=== PATIENT | male | born 2005 | race Caucasian/White ===

== ENCOUNTER 2023-09-18 20:03 | Emergency (ER) | payer OTHER ==
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
[2023-09-18 20:36] VITALS: BP 138/62; O2SAT 100
== END 2023-09-18 20:47 | disposition home or self-care (01) ==
LOC: ED 20:03
DX: M79.661 Pain in right lower leg (principal); V43.62XA Car passenger injured in collision with other type car in traffic accident, initial encounter; Y92.488 Other paved roadways as the place of occurrence of the external cause
CPT/HCPCS: 99281; 99282